=== PATIENT | male | born 1985 | race Caucasian/White ===

== ENCOUNTER 2020-05-18 07:22 | Day surgery (SDC) | payer BC ==
[2020-05-15 08:28] VITALS: BMI 26.1
[~2020-05-18 07:22] MED LIST: ACETAMINOPHEN TAB 500 MG TAB PO ONE; DEXAMETHASONE SOD PHOSPHATE 10 MG/ML 1 ML VIAL IV ONE; HEPARIN SODIUM,PORCINE 5,000 UNIT/ML 1 ML VIAL SQ ONE; LACTATED RINGERS 1,000 ML IV SCH; LIDOCAINE 1% (10MG/ML) FOR IV START INTRADERMA PRN; MIDAZOLAM 2 MG/2 ML VIAL IV PRN; fentaNYL (PF) 50 MCG/ML 2 ML AMP IV PRN
[2020-05-18] MEDS ORDERED: HEPARIN SODIUM,PORCINE 5,000 UNIT/ML 1 ML VIAL ONE (07:32)
[2020-05-18] MEDS ORDERED: ONDANSETRON 4 MG/2 ML VIAL ONE (07:32)
[2020-05-18] MEDS ORDERED: ACETAMINOPHEN TAB 500 MG TAB ONE (07:32)
[2020-05-18 07:52] VITALS: RESP 16
[2020-05-18] MEDS ORDERED: DEXAMETHASONE SOD PHOSPHATE 10 MG/ML 1 ML VIAL IV ONE (07:58)
[2020-05-18] MEDS ORDERED: MIDAZOLAM 2 MG/2 ML VIAL ONE (08:42)
[2020-05-18] MEDS ORDERED: fentaNYL (PF) 50 MCG/ML 2 ML AMP ONE (08:42)
[2020-05-18] MEDS ORDERED: GLYCOPYRROLATE 0.2 MG/ML 2 ML VIAL ONE (08:42)
[2020-05-18] MEDS ORDERED: NEOSTIGMINE 1 MG/ML 10 ML VIAL ONE (08:42)
[2020-05-18] MEDS ORDERED: ROCURONIUM BROMIDE 10 MG/ML 5 ML VIAL IV ONE (08:42)
[2020-05-18] MEDS ORDERED: SUCCINYLCHOLINE CHLORIDE 100 MG/5 ML SYR IV ONE (08:42)
[2020-05-18] MEDS ORDERED: LIDOCAINE 1% INJ 10MG/ML (20 ML MDV) ONE (08:42)
[2020-05-18] MEDS ORDERED: PROPOFOL 10 MG/ML 20 ML VIAL IV ONE (08:42)
[2020-05-18] MEDS ORDERED: HYDROmorphone (PF) 1 MG/ML ONE (08:42)
--- NOTE | 2020-05-18 08:42 | P.GSHP ---
History of Present Illness H&P Date: 05/18/20 Chief Complaint: Right upper quadrant pain, cholelithiasis This is a 35-year-old male who's had complaints of right quadrant pain. Patient's workup found have evidence of cholelithiasis. He presents today for laparoscopic cholecystectomy. Past Medical History Additional Past Medical History / Comment(s): GALLBLADDER DISORDER History of Any Multi-Drug Resistant Organisms: None Reported Additional Past Surgical History / Comment(s): WISDOM TEETH REMOVED WITH ANESTHESIA Past Anesthesia/Blood Transfusion Reactions: No Reported Reaction Smoking Status: Current every day smoker - Past Family History Mother Family Medical History: No Reported History Medications and Allergies Home Medications Medication Instructions Recorded Confirmed Type Ciprofloxacin HCl [Cipro] 500 mg PO BID 05/15/20 05/18/20 History Allergies Allergy/AdvReac Type Severity Reaction Status Date / Time No Known Allergies Allergy Verified 05/18/20 08:03 Surgical - Exam Vital Signs Temp Pulse Resp BP Pulse Ox 97.6 F 90 16 171/81 96 05/18/20 07:40 05/18/20 07:40 05/18/20 07:40 05/18/20 07:40 05/18/20 07:40 - General well developed, well nourished, no distress - Eyes PERRL - ENT normal pinna - Neck no masses - Respiratory normal expansion - Cardiovascular Rhythm: regular - Abdomen Abdomen: soft, non tender Assessment and Plan Assessment: Cholelithiasis Right upper quadrant Quadrant pain We'll perform laparoscopic cholecystectomy
[2020-05-18] MEDS ORDERED: BUPIVACAINE (PF) 0.5% 30 ML VIAL SQ ONE ×2 (09:08→09:12)
[2020-05-18] MEDS ORDERED: LACTATED RINGERS 1,000 ML IV ONE (09:39)
--- NOTE | 2020-05-18 09:45 | P.OP ---
Date of Procedure: 05/18/20 Preoperative Diagnosis: Cholecystitis Postoperative Diagnosis: Cholecystitis Procedure(s) Performed: Laparoscopic cholecystectomy Anesthesia: CHRIS Surgeon: Franky Lopez Estimated Blood Loss (ml): 10 Pathology: other (Gallbladder) Condition: stable Disposition: PACU Description of Procedure: The patient was placed on the operating table. The patient received a general endotracheal tube anesthesia. The patients abdomen was prepped and draped in the usual sterile fashion. Through an infraumbilical stab incision, the fascia of the anterior abdominal wall was grasped with a pair of Kochers and then the Veress needle was placed in the peritoneal cavity. Position of the Veress needle was confirmed with positive drop test. The abdomen was then insufflated. After adequate insufflation, the 10 mm trocar was placed in the peritoneal cavity. Following this the laparoscope was placed in the peritoneal cavity. The patient was placed in the head-up, right side up position and then a 5 mm trocar was placed in the right lateral and right subcostal position under direct visualization. A 8 mm trocar was placed in the epigastric position. The gallbladder was grasped in the fundus and infundibulum. Traction on the gallbladder was placed in the lateral and the cephalad positions. The triangle of Calot was visualized.. The cystic duct was bluntly dissected until the union of the cystic duct and common bile duct was seen. A critical view of safety was achieved. The cystic duct was then divided and sealed with the Harmonic scissors. A PDS Endoloop was then placed throughout the cystic duct stump. The cystic artery divided and sealed with the Harmonic scissors. The gallbladder was then removed from the liver bed using Harmonic scissors. The gallbladder was then extracted through the epigastric port site. Operative field was checked for any bleeding spots and Harmonic scissors was used to coagulate the liver bed. The abdomen was irrigated. The trocars were removed. The skin was closed using interrupted 3-0 Vicryl suture. Dermabond dressing were applied. The patient tolerated the procedure well.
[2020-05-18] MEDS ORDERED: ONDANSETRON 4 MG/2 ML VIAL IVP ONE (09:47)
[2020-05-18] MEDS ORDERED: MEPERIDINE 50 MG/ML SYRINGE IVP ONE (09:52)
[2020-05-18 10:01] VITALS: TEMP 97.2
[2020-05-18 10:45] VITALS: BP 129/88; PULSE 57
== END 2020-05-18 11:04 | disposition home or self-care (01) ==
LOC: OR 07:22
PROVIDERS: ATTEND Surgery
DX: K80.10 Calculus of gallbladder with chronic cholecystitis without obstruction (principal); K08.89 Other specified disorders of teeth and supporting structures; K21.9 Gastro-esophageal reflux disease without esophagitis; F17.210 Nicotine dependence, cigarettes, uncomplicated; Z98.890 Other specified postprocedural states
CPT/HCPCS: 88304; 47562; J2250; J1644; J1100; J2710; J2175; J0690; J2405; J2001; J3010; J1170; J0330; J2704